=== PATIENT | female | born 1995 | race Two or more races ===

== ENCOUNTER 2025-03-18 07:37 | Emergency (ER) | payer MEDICAID, SELFPAY ==
--- NOTE | 2025-03-18 07:45 | EKG_ITS ---
[facility] Test Date: 2025-03-18 Pat Name: ANDERSON WEINER Department: Room: - Gender: Female [employer]: : 1995 Requested By: Mikaela Morgan Order Number: [id number] Reading MD: Mikaela Morgan Measurements Intervals [place] Rate: 98 P: 48 MA: 125 QRS: 81 QRSD: 72 T: 5 QT: 325 QTc: 416 Interpretive Statements SINUS RHYTHM No previous ECG available for comparison /store/S0/[id number]/ecg/[id number].pdf
[2025-03-18 07:47] VITALS: BP 102/71; PULSE 85; RESP 19; TEMP 36.6; O2SAT 99
--- NOTE | 2025-03-18 08:03 | XR_ITS ---
Examination: PA lateral chest 2 views TECHNIQUE: Upright PA and lateral chest 2 views Exam date and time: March 18, 2025 0816 hours INDICATIONS: Right rib and chest pain beginning 3 days ago. FINDINGS: Opacity in the right middle lobe consistent with pneumonia Normal heart size Left lung clear IMPRESSION: Right middle lobe pneumonia
--- NOTE | 2025-03-18 08:04 | EDNOTE_ITS ---
ED Chest Pain RME/HPI General Chief Complaint: Chest Pain Stated Complaint: CHEST PAIN Time Seen by Provider: 03/18/25 07:39 Arrival date/time: 03/18/25 07:37 This is a 29-year-old female that comes in with complaints of chest pain that started last night. Patient states that chest pain is worse when she takes a deep breath. Patient states that she sometimes gets pain to her upper back on the right side 2. She denies shortness of breath. Patient denies any runny nose and does say she had a little bit of a cough but not much. Patient denies any nausea vomiting diarrhea. Patient denies any other sick contacts. Patient denies any urinary symptoms. Patient denies past medical history. Related Data Home Medications ?Medication ?Instructions ?Recorded ?Confirmed albuterol sulfate 90 mcg/actuation 2 puff inhalation Q ID PRN 09/17/20 11/19/20 aerosol inhaler (Ventolin HFA) shortness of breath fluticasone propionate 115 2 puff inhalation Q12H 01/0509/17/20 mcg-salmeterol 21 mcg/actuation HFA inhaler (Advair HFA) Previous Rx's ?Medication ?Instructions ?Recorded azithromycin 250 mg tablet See Rx Instructions PO .COM PLEX #6 03/18/25 (Zithromax) tabs ibuprofen 800 mg tablet 800 mg PO Q6H PRN pain #10 t abs 03/18/25 Allergies Allergy/AdvReac Type Severity Reaction Status Date / Time iodine Allergy Hives Verified 11/19/20 12:07 Course Orders Category Date Time Status EKG (ED ONLY) *Do not use* NOW Care 03/18/25 07:46 Completed EKG (ED Only) Stat Exams 03/18/25 07:45 Draft XR chest 2V Stat Exams 03/18/25 08:03 Completed Acetaminophen Tab [Tylenol ES Tab] Med 03/18/25 08:03 Discontinued 1,000 mg PO X1 ONE Ibuprofen Tab [Motrin Tab] Med 03/18/25 08:03 Discontinued 800 mg PO X1 ONE Vital Signs Vital signs: Vital Signs Temperature 97.9 F 03/18/25 07:47 Pulse Rate 85 03/18/25 07:47 Respiratory Rate 19 03/18/25 07:47 Blood Pressure 102/71 03/18/25 07:47 Pulse Oximetry (%) 99 03/18/25 07:47 Oxygen Delivery Method Room Air 03/18/25 07:47 Procedures -ED EKG Interpretation #1: Date of EK03/18/25 Time of EK:52 Rate: 98 Interpretation: Interpreted by me (sinus rhythm ) EKG Impression: No ectopy, Normal QRS and Normal intervals Chest Pain MDM Narrative MDM Narrative:: chest x ray: FINDINGS: Opacity in the right middle lobe consistent with pneumonia Normal heart size Left lung clear IMPRESSION: Right middle lobe pneumonia Patient will be given Rocephin here. Patient will be sent home with Zithromax. Patient told to come back to the emergency room if symptoms change or worsen. I explained to patient that she would likely need a repeat x-ray for resolution of pneumonia To be ordered by primary provider. Medications / Prescriptions Medication administrations:: Medication Administration History Discontinued Medications Acetaminophen (Acetaminophen 500 Mg Tablet) 1,000 mg PO X1 ONE Stop: 03/18/25 08:04 Last Admin: 03/18/25 08:11 Dose: 1,000 mg Documented By: SHAMAR Ibuprofen (Ibuprofen Tab 400 Mg Tablet) 800 mg PO X1 ONE Stop: 03/18/25 08:04 Last Admin: 03/18/25 08:11 Dose: 800 mg Documented By: SHAMAR Discharge Plan Plan Patient Disposition: HOME (Self Care) Patient condition on transfer: Stable Prescriptions/Referrals Prescriptions/Med Rec: New azithromycin [Zithromax] 250 mg tablet See Rx Instructions .ROUTE .COMPLEX Qty: 6 0RF Rx Instructions: For 250 mg dose pack: take 500 mg today (day 1), then 250 mg for 4 days (days 2-5) ibuprofen 800 mg tablet 800 mg PO Q6H PRN (Reason: pain) Qty: 10 0RF No Action fluticasone propion-salmeterol [Advair HFA] 115-21 mcg/actuation Hfa Aerosol Inhaler 2 puff INHALATION Q12H albuterol sulfate [Ventolin HFA] 90 mcg/actuation Hfa Aerosol Inhaler 2 puff INHALATION QID PRN (Reason: shortness of breath) Referrals: Rolly Guillaume MD [Primary Care Provider] - In 1 week Problem List Clinical Impression: Pneumonia Patient/Caregiver Discharge Instructions Discharge Activity: activity as tolerated Education Materials: ED Pneumonia (Adult) Additional Instructions: Follow up with primary provider in 1-2 days. Come back to ED if symptoms change or worsen Print Language: Hebrew Stand Alone Forms: Concha Award Info., Patient Portal Info Letter PA/[employer] Supervising Physician PA/[employer] Supervising Physician: afshan
[2025-03-18] MEDS: ACETAMINOPHEN 500 MG TABLET 1000 MG PO (08:11)
[2025-03-18] MEDS: IBUPROFEN TAB 400 MG TABLET 800 MG PO (08:11)
[2025-03-18] MEDS: cefTRIAXone 1,000 MG, LIDOCAINE 1% 20 ML 2.1 ML IM (09:01)
[2025-03-18 09:11] VITALS: BP 107/71; PULSE 80; RESP 16; TEMP 36.6; O2SAT 97
== END 2025-03-18 09:23 | disposition home or self-care (01) ==
PROVIDERS: Emergency Provider Emergency Medicine; PCP Family Medicine
DX: J18.9 Pneumonia, unspecified organism (principal)
CPT/HCPCS: 71046; 93005; 96372; J0696; J3490; A9270